=== PATIENT | female | born 1970 | race Caucasian/White ===

== ENCOUNTER 2018-09-06 23:15 | Emergency (ER) | payer SELFPAY ==
[~2018-09-06] VITALS: Ht 177.8 cm; Wt 95.3 kg
[2018-09-06 23:20] VITALS: BP 120/83
--- NOTE | 2018-09-07 00:17 | PHYS DOC ---
Past Medical History Past Medical History: No Pertinent History Past Surgical History: No Surgical History Alcohol Use: None Drug Use: None Adult General Chief Complaint Chief Complaint: FOOT INJURY PAIN HPI HPI Patient is a 48 year old female who presents with homeless and walks a lot and now she states she has blisters on her right second toe on her left second toe and her feet are hurting bilaterally and burning at times. Patient states she was to be admitted to the hospital she can stay off of her feet. Review of Systems Review of Systems Constitutional: Denies fever or chills [] Eyes: Denies change in visual acuity, redness, or eye pain [] HENT: Denies nasal congestion or sore throat [] Respiratory: Denies cough or shortness of breath [] Cardiovascular: No additional information not addressed in HPI [] GI: Denies abdominal pain, nausea, vomiting, bloody stools or diarrhea [] : Denies dysuria or hematuria [] Musculoskeletal: Denies back pain or joint pain [] Integument: Right second toe and left second toe blister with foot pain. Denies rash or skin lesions [] Neurologic: Denies headache, focal weakness or sensory changes [] All other systems were reviewed and found to be within normal limits, except as documented in this note. Physical Exam Physical Exam Constitutional: Well developed, well nourished, no acute distress, non-toxic appearance. [] HENT: Normocephalic, atraumatic, bilateral external ears normal, oropharynx moist, no oral exudates, nose normal. [] Eyes: PERRLA, EOMI, conjunctiva normal, no discharge. [] Neck: Normal range of motion, no tenderness, supple, no stridor. [] Cardiovascular:Heart rate regular rhythm, no murmur [] Lungs & Thorax: Bilateral breath sounds clear to auscultation [] Abdomen: Bowel sounds normal, soft, no tenderness, no masses, no pulsatile masses. [] Skin: Right second toe and left second toe pencil eraser size to dime-sized blister that is slightly hardened. Warm, dry, no erythema, no rash. [] Back: No tenderness, no CVA tenderness. [] Extremities: Bilateral soles of feet tenderness, no cyanosis, no clubbing, ROM intact, no edema. [] Neurologic: Alert and oriented X 3, normal motor function, normal sensory function, no focal deficits noted. [] Psychologic: Affect normal, judgement normal, mood normal. [] Current Patient Data Vital Signs Vital Signs Date Time Temp Pulse Resp B/P (MAP) Pulse Ox O2 Delivery O2 Flow Rate FiO2 09/06/18 23:20 98.7 69 19 120/83 (95) 100 Room Air 98.7 EKG EKG [] Radiology/Procedures Radiology/Procedures [] Course & Med Decision Making Course & Med Decision Making Patient is a 48 year old female who presents with homeless and walks a lot and now she states she has blisters on her right second toe on her left second toe and her feet are hurting bilaterally and burning at times. Patient states she was to be admitted to the hospital she can stay off of her feet. Alert and oriented. Patient states she cannot understand why we cannot admit her medically and so she'll keep her feet up. Patient has been told that she does not have a medical reason for admission and we cannot admit her for a day. Patient agrees to being able to stay in the lobby overnight and is given resources to find a place to go the morning. Patient has 2 closed blisters to her right second toe and left second toe. Both are slightly raised and seemed to be starting to callus. Her feet bilaterally muscles are dry. There is no pedal edema bilaterally. Pedal pulses are strong and present. Cap refill is less than 3 seconds. Skin is pink warm and dry. Patient speaks in full clear sentences. Vital signs are within normal limits she is afebrile. There are no signs of infection, swelling, abrasions, bruising, drainage, deformity. Denies numbness or tingling to her feet bilaterally. Patient currently rates her pain a 8 out of 10 but states it feels better with ice packs. No bilateral lower extremity edema. Band aids have been placed over the right second toe and left second toe. Patient has been given ice packs. Patient has been given slipper socks. Dragon Disclaimer Dragon Disclaimer This electronic medical record was generated, in whole or in part, using a voice recognition dictation system. Departure Departure Impression: Primary Impression: Encounter for medical screening examination Disposition: HOME, SELF-CARE Condition: STABLE Referrals: NO PCP (PCP) Patient Instructions: Medical Screening Exam Additional Instructions: Follow-up with primary care provider. Try stay off her feet as much as possible. LEIDY JIMENEZ APRN Sep 07, 2018 00:17
== END 2018-09-07 00:15 | disposition home or self-care (01) ==
LOC: ER 23:15
DX: S90.424A Blister (nonthermal), right lesser toe(s), initial encounter (principal); S90.425A Blister (nonthermal), left lesser toe(s), initial encounter; X58.XXXA Exposure to other specified factors, initial encounter; Y93.01 Activity, walking, marching and hiking; Y92.89 Other specified places as the place of occurrence of the external cause; Y99.8 Other external cause status
CPT/HCPCS: 99282

== ENCOUNTER 2020-11-13 23:22 | Emergency (ER) | payer SELFPAY ==
[~2020-11-13] VITALS: Ht 177.8 cm; Wt 88.8 kg
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
[2020-11-14 01:07] VITALS: BP 162/89
== END 2020-11-14 01:07 | disposition short-term general hospital (02) ==
LOC: ER 23:22
DX: T74.21XA Adult sexual abuse, confirmed, initial encounter (principal); Z59.0 Homelessness
CPT/HCPCS: 99285-25